=== PATIENT | female | born 2000 | race African-American/Black ===

== ENCOUNTER 2023-01-21 14:35 | Emergency (ER) | payer SELFPAY ==
[2023-01-21] MEDS ORDERED: diphenhydrAMINE 50 MG/ML VIAL ONE (15:37)
[2023-01-21] MEDS ORDERED: Metoclopramide HCl 10 MG/2 ML VIAL ONE (15:37)
[2023-01-21] MEDS ORDERED: Ketorolac Tromethamine 30 MG/ML VIAL ONE (15:38)
[2023-01-21] MEDS ORDERED: Dexamethasone 10 MG/ML VIAL ONE (15:38)
[2023-01-21 16:00] LABS: #Eosinphils 0.1 10x3/uL (0.0-0.5); #Monocytes 0.8 10x3/uL (0.0-1.1); #Neutrophils 1.9 10x3/uL (1.5-8.4); %Basophils 0.5 % (0.0-2.0); %Eosinophils 1.4 % (0.0-6.0); %Lymphocytes 36.3 % (18.0-47.0); %Monocytes 17.7 % (0.0-10.0); %Neutrophils 44.1 % (40.0-75.0); Hemoglobin 11.3 g/dL (12.0-15.5); Mean Corpuscular HGB CONC 33.2 g/dL (32.0-36.0); Mean Corpuscular Volume 81.3 fl (81.6-98.3); Mean Platelet Volume 10.6 fl (7.4-10.4); Platelet Count 213 10x3/uL (150-450); Red Blood Cell (RBC) Count 4.18 10x6/uL (3.90-5.03); White Blood Cell (WBC) Count 4.4 10x3/uL (3.5-10.5)
[2023-01-21 16:05] LABS: ALT (SGPT) 161 U/L (8-55); AST (SGOT) 103 U/L (5-34); Albumin 3.6 g/dL (3.5-5.0); Alkaline Phosphatase 122 U/L (40-110); Anion Gap 11 mmol/L (10-20); BUN (Urea Nitrogen) 12 mg/dL (7.0-18.7); Bilirubin, Total 1.5 mg/dL (0.2-1.2); Calc. Creatinine Clearance 0 mL/min (70-130); Calcium 9.3 mg/dL (7.8-10.44); Carbon Dioxide 23 mmol/L (22-29); Chloride 109 mmol/L (98-107); Estimated GFR 131; Globulin 2.5 g/dL (2.4-3.5); Glucose 127 mg/dL (70-105); Potassium 3.8 mmol/L (3.5-5.1); Protein, Total 6.1 g/dL (6.0-8.3); Sodium 139 mmol/L (136-145)
[2023-01-21 16:11] LABS: Troponin I Less than 0.010 ng/mL (< 0.028)
[2023-01-21 16:35] LABS: BHCG - Serum Negative (NEGATIVE); Pregs Control Background? CLEAR/WHITE (CLR/WHITE); Pregs Control Bar Appear? YES (CONTROL BAR)
== END 2023-01-21 18:16 | disposition home or self-care (01) ==
LOC: CSHERS 14:35
DX: G43.909 Migraine, unspecified, not intractable, without status migrainosus (principal); F07.81 Postconcussional syndrome; R07.9 Chest pain, unspecified
CPT/HCPCS: 70450; 71045; 72125; 80053; 84484; 84703; 85025; 93005; 96365; 96375; J1100; J1200; J1885; J2765